=== PATIENT | female | born 1975 | race Caucasian/White ===

== ENCOUNTER → 2016-07-21 | Outpatient (CLI) | payer BC ==
--- NOTE | 2016-07-21 18:43 | MA ---
Screening Digital Mammogram, With iCAD Analysis Clinical Indications: Routine screening. Maternal grandmother was diagnosed with breast cancer in her 40s. The patient has had a benign right breast biopsy. Technique: Standard cephalocaudal projections are obtained. Digital breast tomosynthesis was perfor med in the MLO projection, with reconstruction at 1.0-mm slice thickness and composite MLO views eneida nstructed. This examination is processed by the iCAD computer aided detection system. Comparison: December 2012, July 2011. Breast Density: Type D; Extremely dense. Findings: CAD was reviewed. There is increasing opacity noted in the inferior right breast on obliqu e views. No suspicious microcalcifications are seen. The left breast is stable in appearance. Impression: Increasing opacity in the inferior right breast requires further evaluation, BI-RADS 0. Recommendation: Spot compression assessment of the right breast, with ultrasound suggested if the ab normality persists on diagnostic evaluation. [facility] will send a result letter to the patient. Dense breast parenchyma diminishes mammographic sensitivity. The patient's information is entered into a reminder system with a target due date for her next mammo gram. E:amm
== END ==
LOC: FIMAGING 11:16
DX: Z12.31 Encounter for screening mammogram for malignant neoplasm of breast (principal); Z80.3 Family history of malignant neoplasm of breast
CPT/HCPCS: G0202

== ENCOUNTER → 2016-08-04 | Outpatient (CLI) | payer BC ==
--- NOTE | 2016-08-04 15:32 | MA ---
Diagnostic Digital Right Mammogram History: Developing densities lower right breast. Comparison: Screening mammogram July 21. Technique: A true lateral view and thus spot view of the lower right breast. Density: D Findings: A single bilobed or 2 adjacent rounded densities are confirmed in the lower right breast . Recommendation: Further imaging with ultrasound, which we will perform shortly.. BI-RADS 0, additional imaging with ultrasound
--- NOTE | 2016-08-04 16:05 | US ---
Right Breast Ultrasound History: Bilobed mass lower right breast seen on diagnostic and screening mammography Comparison: Mammograms July 21 and August 04, 2016 Technique: I first performed a directed physical examination. This was followed by ultrasound exam with a high frequency linear transducer. Findings: At the 4 o'clock radial of the right breast, 5 cm from the nipple is a bilobed microlobulat ed, slightly ill-defined, solid heterogeneous mass with internal microcalcifications. There is a gino r cystic component. There is no obvious internal vascularity on color Doppler analysis. Evaluation of the right axilla is negative. On physical examination, the nodule is palpable once is location is kn own by ultrasound. Impression: Suspicious solid lesion (1.8 x 0.7 x 1.4 cm) lower right breast. Differential diagnosis i ncludes degenerating fibroadenoma, phyllodes tumor and breast malignancy. Recommendation: Ultrasound directed vacuum assisted core biopsy for histologic evaluation. Results and recommendation were discussed with Dr. Redding and the patient, who was given information ab out scheduling an ultrasound directed vacuum assisted core biopsy. BI-RADS 4. Suspicious.
== END ==
LOC: FIMAGING 14:55
PROVIDERS: ATTEND Obstetrics & Gynecology
DX: R92.8 Other abnormal and inconclusive findings on diagnostic imaging of breast (principal); N63 Unspecified lump in breast
CPT/HCPCS: G0206

== ENCOUNTER → 2016-08-25 | Outpatient (CLI) | payer BC ==
[~2016-08-25] MED LIST: THROMBIN (RECOMBINANT) 5,000 UNIT VIAL TP ONE
== END ==
LOC: FIMAGING 13:39
PROVIDERS: ATTEND Obstetrics & Gynecology
PROC: 0HBT3ZX Excision of Right Breast, Percutaneous Approach, Diagnostic (ICD-10-PCS; principal; 2016-08-25)
DX: D24.1 Benign neoplasm of right breast (principal); Z80.3 Family history of malignant neoplasm of breast
CPT/HCPCS: G0206

== ENCOUNTER → 2017-11-11 | Outpatient (CLI) | payer BC | LOC: FIMAGING 14:47 | PROVIDERS: ATTEND Family Medicine | DX: Z12.31 Encounter for screening mammogram for malignant neoplasm of breast (principal) ==

== ENCOUNTER 2017-12-10 03:05 | Emergency (ER) | payer BC ==
[2017-12-10] MEDS ORDERED: GLUCAGON HCL 1 MG VIAL IVP ONE (03:22)
[2017-12-10] MEDS ORDERED: NITROGLYCERIN 0.4 MG BTL SL ONE (03:23)
--- NOTE | 2017-12-10 03:42 | EDPHY ---
H & P Stated Complaint: Food stuck in throat Time Seen by Provider: 12/10/17 03:39 HPI/ROS: HPI The patient presents with feeling of food stuck in her throat. At about 8:00 p.m. She ate barbecued pork. Since then she has felt that it is been stuck in her throat. She has been unable to swallow her saliva and has been up for most of the night because of this. She has a history of food occasionally getting stuck in her esophagus though she has always been able to pass it on her own.. REVIEW OF SYSTEMS Constitutional: No fever, no chills. Eyes: No discharge. ENT: No sore throat. Cardiovascular: No chest pain, no palpitations. Respiratory: No cough, no shortness of breath. Gastrointestinal: No abdominal pain, no vomiting. Genitourinary: No hematuria. Musculoskeletal: No back pain. Skin: No rashes. Neurological: No headache. PMHx: History of appendectomy Soc Hx: Housed PHYSICAL General Appearance: Alert, no distress Eyes: Pupils equal and round no pallor or injection ENT, Mouth: Mucous membranes moist Respiratory: There are no retractions, lungs are clear to auscultation Cardiovascular: Regular rate and rhythm Gastrointestinal: Abdomen is soft and non-tender, no masses, bowel sounds normal Neurological: A&O, moves all extremities Skin: Warm and dry, no rashes Musculoskeletal: Neck is supple non tender Extremities: symmetrical, full range of motion Psychiatric: Patient is oriented X 3, there is no agitation Source: Patient Exam Limitations: No limitations - Personal History LMP (Females 10-55): 8-14 Days Ago Current Tetanus/Diphtheria Vaccine: Unsure Current Tetanus Diphtheria and Acellular Pertussis (TDAP): Unsure - Medical/Surgical History Hx Asthma: No Hx Chronic Respiratory Disease: No Hx Diabetes: No Hx Cardiac Disease: No Hx Renal Disease: No Hx Cirrhosis: No Hx Alcoholism: No Hx HIV/AIDS: No Hx Splenectomy or Spleen Trauma: No Other PMH: , skin graft, appendectomy - Social History Smoking Status: Never smoked Constitutional: Initial Vital Signs Temperature (C) 36.6 C 12/10/17 03:07 Heart Rate 87 12/10/17 03:07 Respiratory Rate 18 12/10/17 03:07 Blood Pressure 125/75 H 12/10/17 03:07 O2 Sat (%) 99 12/10/17 03:07 O2 Delivery Mode Room Air Allergies/Adverse Reactions: peanut Allergy (Verified 12/10/17 03:11) Home Medications: Medication Instructions Recorded NK [No Known Home Meds] 12/10/17 Medical Decision Making Differential Diagnosis: 42-year-old female who is healthy presents with esophageal food impaction after eating barbecued pork at approximately 8:00 p.m.. Unable to tolerate her secretions. Plan for treatment with glucagon and nitroglycerin and will reassess her. After patient received above treatment, she vomited up the pork. She felt much better. She was able to tolerate rocky natalie without difficulty. I have advised her to maintain a soft diet. I have given her follow-up with Gastroenterology. - Data Points Medications Given: Discontinued Medications Glucagon (Glucagon) 1 mg IVP ONCE ONE Stop: 12/10/17 03:23 Last Admin: 12/10/17 03:30 Dose: 1 mg Nitroglycerin (Nitrostat) 0.4 mg SL EDNOW ONE Stop: 12/10/17 03:24 Last Admin: 12/10/17 03:30 Dose: 1 tab Departure - Departure Disposition: Home, Routine, Self-Care Clinical Impression: Food impaction of esophagus Condition: Good Instructions: Food Impaction (ED) Additional Instructions: Please make sure to eat soft foods for the next few days. I recommend you be evaluated by Gastroenterology and I have put the name of the sustainability coordinator below. Please call for an appointment in the next few days. Please return to the emergency department if your worse in any way. Referrals: Yaz Zuniga MD [Primary Care Provider] - As per Instructions Anjel Araujo MD, FACG [Medical Doctor] - As per Instructions
[2017-12-10 04:03] VITALS: BP 123/75
== END 2017-12-10 04:03 | disposition home or self-care (01) ==
DX: R09.89 Other specified symptoms and signs involving the circulatory and respiratory systems (principal)
CPT/HCPCS: 96374; J1610

== ENCOUNTER → 2018-12-12 | Outpatient (CLI) | payer BC | LOC: FIMAGING 11:08 ==